=== PATIENT | male | born 1985 | race Caucasian/White ===

== ENCOUNTER 2021-01-01 08:56 | Emergency (ER) | payer OTHER, SELFPAY ==
[2021-01-01 09:05] VITALS: BP 162/103; PULSE 101; RESP 17; TEMP 36.8; O2SAT 98
--- NOTE | 2021-01-01 09:07 | ED.UPPEXIN ---
HPI - Extremity Injury (Upper) General Chief Complaint: Extremity Injury, Upper Stated Complaint: SHOULDER PAIN Time Seen by Provider: 01/01/21 09:12 Source: patient Mode of arrival: ambulatory Limitations: no limitations History of Present Illness HPI narrative: 35-year-old man comes in today complaining of rectal pain and left shoulder pain. He states he intermittently has blood when he wipes but for last few days he has had pain. He states that he has had a workup in the past including a colonoscopy at 22 yo where he was diagnosed with polyps. He states he often has abdominal pain. There have been concerns in the past about Crohn's disease. He has 2-3 bms daily. He denies fever, nausea, vomiting, dysuria, hematuria, frequent urination, constipation. He also has had left shoulder pain for two months. he states he injured it lifting some carpet over his left shoulder and he felt it pop. He states he has had several episodes in the past where he had months of pain after a minor injury. He states he is now having some numbness on the medial aspect of his left upper arm. She has had no prior dislocation or surgery on that shoulder. MD complaint: injury to: left and shoulder Onset (ago): month(s) (2) Other Extremity Injury: Left: shoulder Other injuries: none Place: work Relieving factors: rest Exacerbating factors: movement of extremity and other (lifting with left arm) Context: injury Associated symptoms: numbness and heard/felt popping sensation Related Data Allergies Allergy/AdvReac Type Severity Reaction Status Date / Time No Known Allergies Allergy Verified 01/01/21 09:15 Review of Systems Review of Systems: All systems reviewed & are unremarkable except as noted in HPI and below Constitutional: Constitutional: Denies chills and Denies fever(s) Comments: Denies weight loss. Eyes: Eyes: Denies change in vision and Denies photophobia ENT: Denies dysphagia, Denies nasal congestion and Denies sore throat Cardiovascular: Cardiovascular: Denies chest pain and Denies radiating jaw, neck or arm pain Respiratory: Respiratory: Denies cough, Denies dyspnea and Denies wheezing Gastrointestinal: Gastrointestinal: Reports as per HPI, Denies abdominal pain, Denies constipation, Denies diarrhea, Denies nausea and Denies vomiting Genitourinary: Genitourinary: Denies hematuria, Denies dysuria and Denies urinary frequency Musculoskeletal: Musculoskeletal: Denies back pain, Reports arthralgias and Denies joint swelling Integumentary/Breasts: Skin/Breast: Denies pruritus, Denies erythema and Denies rash Neurologic: Denies vertigo, Denies dizziness and Denies syncope Psychiatric: Psychiatric: Denies anxiety Endocrine: Endocrine: Denies polydipsia and Denies polyuria Hematologic/Lymphatic: Hematologic/Lymphatic: Denies easy bleeding and Denies easy bruising Allergic/Immunologic: Allergic/Immunologic: Denies lip swelling and Denies throat swelling [facility], [facility] Past Medical History Medical History (Updated 01/01/21 @ 09:41 by Justin Deng MD) Colon polyps Surgical History Surgical History (Updated 01/01/21 @ 09:34 by Justin Deng MD) H/O colonoscopy H/O esophagogastroduodenoscopy Social History Social History (Updated 01/01/21 @ 09:34 by Justin Deng MD) Smoking status: Current every day smoker Substance use: never Living arrangements: with family Exam Const: General: healthy appearing and alert Nutritional Appearance: obese Orientation/consciousness: patient oriented x3 Limitations: no limitations Other: Mild acute distress. HENMT: Head: normal to inspection Ears: external ears normal, EAC's normal and Abnormal EAC present Face and sinus: normal facial exam Mouth: Yes moist mucous membranes Throat: posterior oropharynx normal Eyes: Conjunctivae: conjunctivae normal Pupils: Equal, round and reactive pupils present EOM: EOMs intact bilaterally Resp: Effort & Inspection: normal
[2021-01-01 09:50] VITALS: RESP 15
== END 2021-01-01 09:50 | disposition home or self-care (01) ==
PROVIDERS: Emergency Provider Emergency Medicine
DX: S46.912A Strain of unspecified muscle, fascia and tendon at shoulder and upper arm level, left arm, initial encounter (principal); K64.9 Unspecified hemorrhoids; X50.9XXA Other and unspecified overexertion or strenuous movements or postures, initial encounter
CPT/HCPCS: 99283

== ENCOUNTER 2021-01-04 08:20 | Emergency (ER) | payer OTHER, SELFPAY ==
--- NOTE | ~2021-01-04 | XR_ITS ---
EXAMINATION: XR chest 2V DATE: 01/04/2021 09:49 INDICATION: Cough and wheezing. TECHNIQUE: Frontal and lateral views of the chest were obtained on 3 radiographs. COMPARISON: None. FINDINGS: The chest demonstrates clear lungs without pneumonia, pleural effusion, or pneumothorax. Th e heart size is normal. IMPRESSION: 1. No acute cardiopulmonary disease. Reviewed, dictated and finalized at location B.
[2021-01-04 08:37] VITALS: BP 146/109; PULSE 95; RESP 95; TEMP 36.4; O2SAT 97
--- NOTE | 2021-01-04 08:38 | ED.URI ---
HPI - URI/Sore Throat General Chief Complaint: Upper Respiratory Infection Stated Complaint: possible sinus infection Time Seen by Provider: 01/04/21 08:38 Source: patient Mode of arrival: ambulatory Limitations: no limitations History of Present Illness HPI Narrative: 35-year-old man with history of asthma and smoking comes in today complaining of cough, nasal congestion, chills and productive cough for the last 48 hours. Patient states that he has had some mild shortness of breath and wheezing. States he has had wheezing in the past. He denies any chest pain, vomiting, diarrhea, rash or known sick exposures. Patient has a history of hypertension and takes antihypertensive medication at home however he states he is not very consistent and is running out of his medication since being [facility]. MD elicited complaint: cough, sore throat, rhinorrhea and nasal congestion Pertinent past history: asthma Onset (ago): day(s) (2) Consistency: constant Severity: moderate Description of mucous: other (brown and yellow) Able to tolerate fluids by mouth: Yes Exacerbating factors: deep breaths Relieving factors: nothing Associated symptoms: chills, rhinorrhea, nasal congestion, sore throat, cough and shortness of breath Treatments prior to arrival: none Related Data Home Medications Medication Instructions Recorded Confirmed levothyroxine 25 mcg PO DAILY 01/04/21 01/04/21 nifedipine 30 mg PO DAILY 01/04/21 01/04/21 Allergies Allergy/AdvReac Type Severity Reaction Status Date / Time No Known Allergies Allergy Verified 01/01/21 09:15 Review of Systems Review of Systems: All systems reviewed & are unremarkable except as noted in HPI and below Constitutional: Constitutional: Reports chills and Denies fever(s) Eyes: Eyes: Denies change in vision and Denies photophobia ENT: Denies dysphagia, Reports nasal congestion and Reports sore throat Cardiovascular: Cardiovascular: Denies chest pain and Denies radiating jaw, neck or arm pain Respiratory: Respiratory: Reports as per HPI, Reports cough, Reports dyspnea and Reports wheezing Gastrointestinal: Gastrointestinal: Denies abdominal pain, Denies diarrhea, Denies nausea and Denies vomiting Genitourinary: Genitourinary: Denies dysuria and Denies urinary frequency Musculoskeletal: Musculoskeletal: Denies arthralgias and Denies joint swelling Integumentary/Breasts: Skin/Breast: Denies pruritus, Denies erythema and Denies rash Neurologic: Denies vertigo, Denies dizziness and Denies syncope Hematologic/Lymphatic: Hematologic/Lymphatic: Denies easy bleeding and Denies easy bruising Allergic/Immunologic: Allergic/Immunologic: Denies lip swelling and Denies throat swelling [facility] Past Medical History Medical History (Updated 01/04/21 @ 09:11 by Justin Deng MD) Asthma Bipolar 1 disorder Colon polyps Hypertension Hypothyroidism Surgical History Surgical History H/O colonoscopy H/O esophagogastroduodenoscopy Social History Social History Smoking status: Current every day smoker Substance use: never Exam Const: General: healthy appearing, no acute distress and alert Nutritional Appearance: obese Orientation/consciousness: patient oriented x3 Limitations: no limitations HENMT: Head: normal to inspection Ears: external ears normal, TM's normal bilaterally and EAC's normal General nose exam: Normal nares present Face and sinus: normal facial exam Mouth: Yes moist mucous membranes Other: Diffuse pharyngeal erythema with postnasal drainage. No edema, masses, swelling or tonsillar hypertrophy. Eyes: Conjunctivae: conjunctivae normal Pupils: Equal, round and reactive pupils present EOM: EOMs intact bilaterally Resp: Effort & Inspection: normal respiratory effort Auscultation: wheezes expiratory wheezes and throughout Other: Good
[2021-01-04] MEDS: ALBUTEROL SULFATE (*SP) INHALER 4 PUFF INHALATION (09:00)
[2021-01-04 09:33] LABS: Influenza A QL RT-PCR Negative (Negative); Influenza B QL RT-PCR Negative (Negative); SARS-CoV-2 RNA PCR Negative (Negative)
[2021-01-04 10:10] VITALS: BP 167/97; PULSE 80; RESP 18; O2SAT 98
== END 2021-01-04 10:10 | disposition home or self-care (01) ==
PROVIDERS: Emergency Provider Emergency Medicine
DX: J45.21 Mild intermittent asthma with (acute) exacerbation (principal); I10 Essential (primary) hypertension; J06.9 Acute upper respiratory infection, unspecified; Z20.822 Contact with and (suspected) exposure to COVID-19; F17.200 Nicotine dependence, unspecified, uncomplicated; E03.9 Hypothyroidism, unspecified
CPT/HCPCS: 71046; 87502; 99283; A9270; C9803; U0003; U0005

== ENCOUNTER 2024-05-11 07:49 | Emergency (ER) | payer OTHER, SELFPAY ==
[2024-05-11] VITALS (7 sets, daily range): BP systolic 165–185; BP diastolic 106–125; PULSE 86–101; RESP 8–20; TEMP 36.6; O2SAT 92–98
[2024-05-11] MEDS: NIFEdipine 30 MG TAB.ER.24 PO (08:22)
--- NOTE | 2024-05-11 08:24 | PC.NURSE ---
Pt c/o back ache and ALVARES, requesting something for pain. made aware. Dr. Goldsmith gave VORB for 650mg tylenol PO stat.
[2024-05-11] MEDS: ACETAMINOPHEN 325 MG TABLET 650 MG PO (09:03)
--- NOTE | 2024-05-11 09:18 | PC.NURSE ---
Pt provided with d/c instructions from [facility] with phone to call for transportation. [phone] called for pharmacy update. Nidia at [facility] reports to call again when pt is ready to be d/c.
--- NOTE | 2024-05-11 09:36 | ED.GENADULT ---
HPI - General Adult General Chief complaint: Recheck/Abnormal Lab/Rx Stated complaint: HTN Time Seen by Provider: 05/11/24 08:00 History of Present Illness HPI narrative: Patient is a 39-year-old male who presents ER with elevated blood pressures. He is at [facility] for mental health treatment. He is not suicidal. He has not been taking his hypertension medications for several months and it was found that his blood pressure was high so he was sent here to be evaluated. He has no additional symptoms or complaints. Related Data Home Medications Medication Instructions Recorded Confirmed levothyroxine 25 mcg tablet 25 mcg PO DAILY 01/04/21 01/04/21 Allergies Allergy/AdvReac Type Severity Reaction Status Date / Time No Known Allergies Allergy Verified 01/16/21 13:26 Review of Systems Review of Systems: All systems reviewed & are unremarkable except as noted in HPI and below Constitutional: Constitutional: Reports no additional constitutional complaints Cardiovascular: Cardiovascular: Reports no additional cardiovascular complaints Respiratory: Respiratory: Reports no additional respiratory complaints Gastrointestinal: Gastrointestinal: Reports no additional gastrointestinal complaints [facility] Past Medical History Medical History Asthma Bipolar 1 disorder Colon polyps Hypertension Hypothyroidism Surgical History Surgical History H/O colonoscopy H/O esophagogastroduodenoscopy Social History Social History Smoking status: Current every day smoker Substance use: never Living arrangements: with family Exam Narrative: GENERAL: Well-appearing, well-nourished, and in no acute distress. HEAD: Normocephalic, atraumatic. ENT: Mucous membranes moist. CHEST: Clear to auscultation. No respiratory distress. HEART: Regular rate and rhythm. Normal peripheral pulses. NEURO: Alert and oriented x3. PSYCH: Normal mood and affect. Course Course Emergency Course: Blood pressure improving with patient's home nifedipine. Will prescribe hypertension medication for home. Will also give PCP follow-up. Vital Signs Vital signs: Vital Signs Temperature 97.9 F 05/11/24 07:52 Pulse Rate 95 05/11/24 07:52 Respiratory Rate 18 05/11/24 07:52 Blood Pressure 185/125 H 05/11/24 07:52 Pulse Oximetry 98 09/18/24 07:52 Oxygen Delivery Room Air 05/11/24 07:52 Temperature 97.9 F 05/11/24 07:52 Pulse Rate 90 05/11/24 09:01 Respiratory Rate 17 05/11/24 09:01 Blood Pressure 173/106 H 05/11/24 09:01 Pulse Oximetry 92 05/11/24 09:01 Oxygen Delivery Room Air 05/11/24 07:52 Medical Decision Making Vital Signs Vital Signs: Vital Signs Temperature 97.9 F 05/11/24 07:52 Pulse Rate 95 05/11/24 07:52 Respiratory Rate 18 05/11/24 07:52 Blood Pressure 185/125 H 05/11/24 07:52 Pulse Oximetry 98 05/11/24 07:52 Oxygen Delivery Room Air 05/11/24 07:52 Temperature 97.9 F 05/11/24 07:52 Pulse Rate 90 05/11/24 09:01 Respiratory Rate 17 05/11/24 09:01 Blood Pressure 173/106 H 05/11/24 09:01 Pulse Oximetry 92 05/11/24 09:01 Oxygen Delivery Room Air 05/11/24 07:52 Discharge Plan Discharge Clinical Impression: Hypertension Patient Disposition: Home, Self-Care Condition: Stable Instructions: Hypertension (ED) Additional Instructions: We are refilling her nifedipine. Make sure you take the medications so your blood pressure remains controlled. Prescriptions: New nifedipine 30 mg tablet extended release 30 mg PO DAILY Qty: 30 0RF No Action Proctofoam HC 1-1 % foam 1 applic RECTAL QID PRN (Reason: hemorrhoids) Qty: 10 0RF Rx Instructions: Use for no longer than one week. nifedipine 30 mg tablet extended release 30 mg PO CHERYL
== END 2024-05-11 09:54 | disposition home or self-care (01) ==
PROVIDERS: Emergency Provider Emergency Medicine
DX: I10 Essential (primary) hypertension (principal); J45.909 Unspecified asthma, uncomplicated; E03.9 Hypothyroidism, unspecified; F17.200 Nicotine dependence, unspecified, uncomplicated; Z86.010 Personal history of colon polyps; T46.5X6A Underdosing of other antihypertensive drugs, initial encounter; Z79.899 Other long term (current) drug therapy
CPT/HCPCS: 99283; A9270

== ENCOUNTER 2024-08-15 08:50 | Emergency (ER) | payer OTHER, SELFPAY ==
[2024-08-15 09:01] VITALS: BP 139/94; PULSE 90; RESP 16; TEMP 36.3; O2SAT 99
--- NOTE | 2024-08-15 09:26 | ED_ITS ---
HPI - URI/Sore Throat General Chief Complaint: Upper Respiratory Infection Stated Complaint: Sinus Time Seen by Provider: 08/15/24 09:26 Source: patient, RN notes reviewed and old records reviewed Mode of arrival: ambulatory Limitations: no limitations History of Present Illness HPI Narrative: [age] old male presents to the [facility] with complaints abdominal pain, nausea, vomiting since Thursday. States that he has not been able to keep any fluids or food down since Thursday. Patient also reporting a frontal headache and bilateral ear discomfort since last night, reports his right ear is the only discomfort he is having right. States that he did take Tylenol for that. No other treatment prior to arrival Denies fevers chest pain. Onset (ago): day(s) (2) Related Data Home Medications ?Medication ?Instructions ?Recorded ?Confirmed ?Last Taken ?Type levothyroxine 25 mcg tablet 25 mcg PO DAILY 01/04/21 01/04/21 Unknown History aripiprazole 10 mg tablet mg 08/15/24 Unknown History aripiprazole 5 mg tablet mg 08/15/24 Unknown History gabapentin 300 mg capsule mg 08/15/24 Unknown History Allergies Allergy/AdvReac Type Severity Reaction Status Date / Time albuterol Allergy Intermediate Swelling Verified 08/15/24 10:05 of Lip/Tongue/Throat Review of Systems Review of Systems: All systems reviewed & are unremarkable except as noted in HPI and below Constitutional: Constitutional: Reports no additional constitutional complaints ENT: Reports otalgia and Reports sinus pain Cardiovascular: Cardiovascular: Reports no additional cardiovascular complaints, Denies chest pain and Denies dyspnea Respiratory: Respiratory: Reports no additional respiratory complaints, Denies chest congestion, Denies cough and Denies dyspnea Gastrointestinal: Gastrointestinal: Reports as per HPI, Reports abdominal pain, Reports nausea and Reports vomiting Musculoskeletal: Musculoskeletal: Reports no additional musculoskeletal complaints Integumentary/Breasts: Skin/Breast: Reports system reviewed and no additional complaints, except as docu PMFSH Past Medical History Medical History Bipolar 1 disorder Hypothyroidism Hypertension Asthma Colon polyps Surgical History Surgical History H/O esophagogastroduodenoscopy H/O colonoscopy Social History Social History Smoking status: Current every day smoker Substance use: never Living arrangements: with family Comments At the time of my signature, I reviewed and agree with the nursing past medical, surgical, social, and family history. There is no relevant family history pertinent to the patient complaint. Exam Const: General: cooperative, no acute distress, well developed, alert, uncomfortable and well nourished Nutritional Appearance: well nourished and obese Orientation/consciousness: patient oriented x3 Limitations: no limitations HENMT: Head: normal to inspection Ears: external ears normal, EAC's normal, mastoids normal, no periauricular adenopathy and TM abnormal bulging bilateral Face/Nose/Sinus: normal facial exam, face symmetric and sinus tenderness Face and sinus: normal facial exam and face symmetric Mouth: Yes Normal oral and palatal mucosa present, Yes lip normal, Yes tongue normal and Yes moist mucous membranes Throat: posterior oropharynx normal, uvula midline and no uvular edema Eyes: General: appearance normal, both eyes and all related structures Neck: Neck: normal visual inspection, full ROM, no lymphadenopathy and no meningeal signs Chest: Chest palpation & inspection: normal inspection of the chest Resp: Effort & Inspection: normal respiratory effort and able to speak in complete sentences Auscultation: no crackles, no rales, no rhonchi and wheezes expiratory wheezes and right upper Cardio: Rate: regular rate GI: GI Palp: Yes abdominal tenderness Auscultation: normal bowel sounds : General: Yes no CVA tenderness Skin: General skin exam: normal color and no rashes or lesions noted Neuro: General: patient oriented x3, gait normal, moves all extremities and no meningeal signs Cognition (Neuro): normal cognition Speech: normal speech Gait exam (Neuro): Normal gait present Extrem: General: normal to inspection, full ROM, capillary refill normal and normal gait Psych: Appearance: grossly normal and well kempt Mental Status: mental status grossly normal Speech and movement: Normal speech and movement present and Clear speech present Affect: normal affect Attitude: cooperative Course Course Level of Care: Express Care Visit Vital Signs Vital signs: Vital Signs Temperature 97.3 F L 08/15/24 09:01 Pulse Rate 90 08/15/24 09:01 Respiratory Rate 16 08/15/24 09:01 Blood Pressure 139/94 H 08/15/24 09:01 Pulse Oximetry 99 08/15/24 09:01 Oxygen Delivery Room Air 08/15/24 09:01 Temperature 97.3 F L 08/15/24 09:01 Pulse Rate 90 08/15/24 09:01 Respiratory Rate 16 08/15/24 09:01 Blood Pressure 139/94 H 08/15/24 09:01 Pulse Oximetry 99 08/15/24 09:01 Oxygen Delivery Room Air 08/15/24 09:01 Reviewed Transfer Transfered to: [facility] (Per patient request) Transportation: Other (POV) Transfer rationale: Patient with 2 day history of right upper quadrant, epigastric pain with nausea vomiting, and able to keep eat or drink for 2 days Sending to the ER rule out gallbladder, pancreatitis Accepting physician: Spoke with Yady SHINE, Dr Smith MDM - URI/Sore Throat MDM Narrative Medical decision making narrative: Patient sitting in exam room. Nontoxic, vitals stable. Patient presents with sinus headache but also nausea vomiting x2 days. On exam patient with epigastric, right upper quadrant pain. Concern for gallbladder issues, pancreatitis due to patient's past medical history. Patient being sent for higher level of care Transfer instructions reviewed with patient to go directly to the emergency room, do not eat or drink. All questions have been answered, and the patient deny any further questions. Some parts of this dictation were generated by voice recognition software and may contain typographical and/or grammatical inaccuracies. Differential Diagnosis Differential diagnosis: Likely upper respiratory infection and other (Cholecystitis, cholelithiasis, pancreatitis) Critical Care Time Critical Care Time Critical Care Time: No Discharge Plan Discharge Clinical Impression: Abdominal pain, acute, right upper quadrant, Nausea & vomiting Patient Disposition: Acute Care Hospital Condition: Stable Patient Language: Andorran Prescriptions: No Action Proctofoam HC 1-1 % foam 1 applic RECTAL QID PRN (Reason: hemorrhoids) Qty: 10 0RF Rx Instructions: Use for no longer than one week. nifedipine 30 mg tablet extended release 30 mg PO DAILY Qty: 30 0RF albuterol sulfate 90 mcg/actuation HFA aerosol inhaler 2 puff inhalation Q4H PRN (Reason: shortness of breath or wheezing) Qty: 6.7 0RF levothyroxine 25 mcg Tablet 25 mcg PO DAILY nifedipine 30 mg tablet extended release 30 mg PO DAILY Qty: 30 0RF Follow-up/Referrals: [facility],Healthcare [Primary Care Provider] -
== END 2024-08-15 09:45 | disposition short-term general hospital (02) ==
PROVIDERS: Emergency Provider Nurse Practitioner
DX: R10.11 Right upper quadrant pain (principal); R11.2 Nausea with vomiting, unspecified; I10 Essential (primary) hypertension; E03.9 Hypothyroidism, unspecified; F17.200 Nicotine dependence, unspecified, uncomplicated; Z79.899 Other long term (current) drug therapy
CPT/HCPCS: 99212; G0463

== ENCOUNTER 2024-08-15 10:20 | Emergency (ER) | payer OTHER, SELFPAY ==
[2024-08-15] VITALS (12 sets, daily range): BP systolic 146–179; BP diastolic 90–119; PULSE 81–97; RESP 8–18; TEMP 36.4; O2SAT 93–97
--- NOTE | ~2024-08-15 | US_ITS ---
EXAMINATION: US abdomen limited DATE: 08/15/2024 11:58 INDICATION: Right upper quadrant abdominal pain. TECHNIQUE: Multiple grayscale and Doppler ultrasound images of the abdomen were obtained. COMPARISON: None FINDINGS: This was personally pancreatic body appears normal. The pancreatic head and tail are obscured. Liver has normal contour, with a smooth surface. There is increased parenchymal echogenicity and coarsened echotexture consistent with diffuse hepatic steatosis. No liver lesion identified. No intrahepatic b iliary duct dilation suspected. Portal venous flow was seen in the hepatopetal, normal direction and has normal Doppler waveform. The gallbladder is normal in appearance. There is no cholelithiasis. Th e common bile duct measures 2-3 mm, which is normal. Sonographic Baron sign was reported as negative by the estate planning paralegal.This visualized portion of the right kidney demonstrate normal contour and echoge nicity with no hydronephrosis. After flow was seen in the proximal aorta and inferior vena cava on co gumaro Doppler images which are not clearly visualized on the grayscale imaging. IMPRESSION: 1. Diffuse hepatic steatosis. Otherwise unremarkable right upper quadrant ultrasound. Reviewed, dictated and finalized at location B. [facility] [facility] IMPRESSION: 1. Diffuse hepatic steatosis. Otherwise unremarkable right upper quadrant ultra sound.
--- NOTE | ~2024-08-15 | XR_ITS ---
EXAMINATION: XR chest 1V portable DATE: 08/15/2024 11:32 INDICATION: Upper respiratory infection. TECHNIQUE: A single frontal view of the chest was obtained on 2 radiographs. COMPARISON: Chest 2 views 01/04/2021 FINDINGS: There is no pneumonia, pleural effusion, or pneumothorax. The heart size is normal. IMPRESSION: 1. No acute cardiopulmonary disease. Reviewed, dictated and finalized at location A. [facility] [employer] [facility]
[2024-08-15 10:48] LABS: Basophils Absolute Auto 0.1 K/mm3 (0.0-0.1); Basophils Percent Auto 0.6 % (0.2-1.2); Eosinophils Absolute Auto 0.2 K/mm3 (0-0.3); Eosinophils Percent Auto 1.4 % (0-4.4); Hematocrit 48.8 % (42.0-52.0); Hemoglobin 16.6 g/dL (14.0-18.0); Immature Granulocyte Absolute 0.05 K/mm3 (0.00-0.031); Immature Granulocyte Percent A 0.5 % (0-0.5); Lymphocytes Absolute Auto 3.03 K/mm3 (0.9-3.2); Mean Corpuscular Hemoglobin 28.3 pg (26-34); Mean Corpuscular Volume 83.3 fl (80-100); Mean Platelet Volume 11.2 fl (7.4-10.4); Monocytes Absolute Auto 0.8 K/mm3 (0.1-0.6); Monocytes Percent Auto 7.2 % (2.6-8.5); Neutrophils Absolute Auto 6.4 K/mm3 (1.3-6.7); Neutrophils Percent Auto 61.3 % (45.5-73.1); Platelet Count Result 265 k/mm3 (150-375); Red Blood Count 5.86 M/mm3 (4.6-6.20); Red Cell Distribution Width 12.9 % (11.5-14.5); White Blood Count 10.5 K/mm3 (4.5-10.0)
[2024-08-15 10:56] LABS: Add Urine Microscopic? YES; Appearance Urine Clear (Clear); Bacteria Urine None Seen /hpf; Bilirubin Urine Negative (Negative); Blood Urine Negative (Negative); Color Urine Yellow (Yellow); Glucose Urine UA Negative (Negative); Ketones Urine Negative (Negative); Leukocyte Esterase Ur Negative LEU/UL (Negative); Nitrate Urine Negative (Negative); Non Pathogenic Casts 0-2; Protein Urine Trace mg/dL (Negative); RBC Urine 0-2 /hpf (0-2); Specific Grav Ur 1.027 (1.001-1.035); Squamous Epithelial Cell Urine None Seen /hpf (Few); Urobilinogen Urine 0.2 mg/dL (<2.0); WBC Urine 0-5 /hpf (0-3); pH Urine 5.5 (5.0-9.0)
[2024-08-15 11:03] LABS: Alanine Aminotransferase 141 U/L (6-50); Albumin Level 4.6 g/dL (3.5-5.1); Alkaline Phosphatase 68 U/L (38-126); Anion Gap 4 mmol/L (4-12); Aspartate Amino Transferase 55 U/L (17-59); Bilirubin,Total 1.1 mg/dL (0.2-1.3); Blood Urea Nitrogen 17 mg/dL (9-20); Calcium 9.4 mg/dL (8.4-10.2); Carbon Dioxide 29 mmol/L (22-30); Chloride 105 mmol/L (98-107); Estimated CRCL calculation 104 ml/min; Estimated Glomerular Filt Rate > 60; Glucose 110 mg/dL (65-110); Lipase 59 U/L (23-300); Potassium 4.4 mmol/L (3.4-5.0); Sodium 138 mmol/L (137-145)
[2024-08-15] MEDS: ONDANSETRON INJ 4 MG/2 ML VIAL IV PUSH (11:42)
[2024-08-15] MEDS: HYDROmorphone HCL INJ (*CRX) 1 MG/ML SYR 0.5 MG IV PUSH (11:42)
--- NOTE | 2024-08-15 11:47 | ED.ABDPAIN ---
HPI - Abdominal Pain General Chief Complaint: Abdominal Pain Stated Complaint: abd pain Time Seen by Provider: 08/15/24 11:15 History of Present Illness HPI narrative: 39-year-old male with a past medical history included bipolar depression, hypertension, asthma. Patient presents to the emergency department via referral from Urgent Care for 2 days of abdominal pain in the right upper quadrant, epigastric pain, nausea and vomiting. Difficulty tolerating p.o. intake. He states he has also been having subjective fever and chills in a bilateral frontal headache. Denies any recent injuries or illnesses. No history of gallstones or cholecystitis was nausea. No abdominal surgery history. Was otherwise in normal state of health. No injuries or trauma. No constipation or diarrhea. Related Data Home Medications ?Medication ?Instructions ?Recorded ?Confirmed ?Last Taken ?Type levothyroxine 25 mcg tablet 25 mcg PO DAILY 01/04/21 01/04/21 Unknown History aripiprazole 10 mg tablet mg 08/15/24 Unknown History aripiprazole 5 mg tablet mg 08/15/24 Unknown History gabapentin 300 mg capsule mg 08/15/24 Unknown History Allergies Allergy/AdvReac Type Severity Reaction Status Date / Time albuterol Allergy Intermediate Swelling Verified 08/15/24 10:05 of Lip/Tongue/Throat Review of Systems Review of Systems: As reviewed [facility] Past Medical History Medical History Bipolar 1 disorder Hypothyroidism Hypertension Asthma Colon polyps Surgical History Surgical History H/O esophagogastroduodenoscopy H/O colonoscopy Social History Social History Smoking status: Current every day smoker Substance use: never Living arrangements: with family Exam Narrative: GENERAL: [Well-appearing, well-nourished, and in no acute distress.] HEAD: [Normocephalic, atraumatic.] EYES: [PERRLA and EOMI.] ENT: Nares clear, no rhinorrhea or epistaxis. Mucous membranes moist. NECK: Supple. CHEST: [Clear to auscultation. No respiratory distress.] HEART: [Regular rate and rhythm]. No murmur heard. [Normal peripheral pulses.] ABDOMEN: Protuberant abdomen, tenderness to palpation the upper right-sided and epigastrium, positive Baron sign, [No rigidity or guarding] EXTREMITIES: Normal range of motion. [No edema.] SKIN: Warm, dry, no rash. NEURO: [No focal deficits]. Alert and oriented [x3.] PSYCH: [Normal mood and affect.] Course Vital Signs Vital signs: Vital Signs Temperature 36.4 C 08/15/24 10:24 Pulse Rate 97 08/15/24 10:24 Respiratory Rate 16 08/15/24 10:24 Blood Pressure 166/107 H 08/15/24 10:24 Pulse Oximetry 97 08/15/24 10:24 Oxygen Delivery Room Air 08/15/24 10:24 Temperature 36.4 C 08/15/24 10:24 Pulse Rate 88 08/15/24 13:53 Respiratory Rate 18 08/15/24 13:53 Blood Pressure 146/90 H 08/15/24 13:53 Pulse Oximetry 96 08/15/24 13:53 Oxygen Delivery Room Air 08/15/24 11:16 MDM - Abdominal Pain MDM Narrative Medical decision making narrative: 39-year-old male with a past medical history of bipolar depression, hypertension asthma presenting with 2 days of right upper quadrant pain, epigastric pain, nausea vomiting. He otherwise appears well not any acute distress and is not ill or toxic appearing but does have tenderness in his right upper quadrant epigastrium. His abdomen is protuberant but not distended. He is nauseous and had some vomiting earlier today. No fever chills. Vital signs show some stable high blood pressure with a blood pressure 161/119 but otherwise no tachycardia, fever, hypoxia. Differential includes cholelithiasis, cholecystitis, biliary colic, renal colic, gastritis, pancreatitis. He was sent in by urgent care for referral to rule out gallbladder or pancreatitis concerns. IV was established and blood work obtained. Right upper quadrant ultrasound ordered he was given Dilaudid and Zofran for symptom control. Workup shows no significant leukocytosis, no anemia. Electrolytes within normal limits, negative lipase, normal creatinine, normal bilirubin, mildly elevated ALT but otherwise AST and alk-phos normal. No evidence of urinary tract infection. Right upper quadrant ultrasound shows hepatic steatosis otherwise unremarkable with normal gallbladder, no cholelithiasis, common bile duct within normal limits. Negative sonographic Baron sign. Chest x-ray was independently reviewed and shows no pneumonia pleural effusion or pneumothorax. Patient was re-evaluated after symptom control felt significant improvement. At this time I believe he can be safely discharged home at this time given that he is asymptomatic with normal labs and normal vital signs. Patient felt comfortable this plan of care and will follow up on outpatient basis or return with any new or worsening signs or symptoms. Medical Records Attestation: I reviewed the patient's medical records. Lab Data Attestation: I reviewed the patient's lab results. 08/15/24 10:36 08/15/24 10:36 Labs: Lab Results 08/15/24 Range/Units 10:36 WBC 10.5 H (4.5-10.0) K/mm3 RBC 5.86 (4.6-6.20) M/mm3 Hgb 16.6 (14.0-18.0) g/dL Hct 48.8 (42.0-52.0) % MCV 83.3 (80-100) fl MCH 28.3 (26-34) pg MCHC 34.0 (32-36) g/dl RDW 12.9 (11.5-14.5) % Plt Count 265 (150-375) k/mm3 MPV 11.2 H (7.4-10.4) fl Immature Gran % (Auto) 0.5 (0-0.5) % Neut % (Auto) 61.3 (45.5-73.1) % Lymph % (Auto) 29.0 (18.3-44.2) % Clarke % (Auto) 7.2 (2.6-8.5) % Eos % (Auto) 1.4 (0-4.4) % Baso % (Auto) 0.6 (0.2-1.2) % Lymph # (Auto) 3.03 (0.9-3.2) K/mm3 Clarke # (Auto) 0.8 H (0.1-0.6) K/mm3 Eos # (Auto) 0.2 (0-0.3) K/mm3 Baso # (Auto) 0.1 (0.0-0.1) K/mm3 Abs Immat Gran (auto) 0.05 H (0.00-0.031) K/mm3 Absolute Neuts (auto) 6.4 (1.3-6.7) K/mm3 Absolute Nucleated RBC 0.000 (0.0-0.012) K/mm3 Nucleated RBC % 0.0 (0.0-0.2) % Sodium 138 (137-145) mmol/L Potassium 4.4 (3.4-5.0) mmol/L Chloride 105 (98-107) mmol/L Carbon Dioxide 29 (22-30) mmol/L Anion Gap 4 (4-12) mmol/L BUN 17 (9-20) mg/dL Creatinine 1.10 (0.7-1.3) mg/dL Estim Creat Clear Calc 104 ml/min Estimated GFR > 60 (59 - ) Glucose 110 (65-110) mg/dL Calcium 9.4 (8.4-10.2) mg/dL Total Bilirubin 1.1 (0.2-1.3) mg/dL AST 55 (17-59) U/L ALT 141 H (6-50) U/L Alkaline Phosphatase 68 (38-126) U/L Total Protein 8.0 (6.3-8.2) g/dL Albumin 4.6 (3.5-5.1) g/dL Lipase 59 (23-300) U/L Urine Color Yellow (Yellow) Urine Appearance Clear (Clear) Urine pH 5.5 (5.0-9.0) Ur Specific [place] 1.027 (1.001-1.035) Urine Protein Trace (Negative) mg/dL Urine Glucose (UA) Negative (Negative) mg/dL Urine Ketones Negative (Negative) mg/dL Ur Blood (Man) Negative (Negative) Urine Nitrate Negative (Negative) Urine Bilirubin Negative (Negative) Urine Urobilinogen 0.2 (<2.0) mg/dL Leukocyte Esterase Rfl Negative (Negative) DONNA/UL Urine RBC 0-2 (0-2) /hpf Urine WBC 0-5 (0-3) /hpf Ur Squamous Epith Cells None seen (Few) /hpf Urine Bacteria None seen /hpf Urine Casts 0-2 Imaging Data Attestation: I personally reviewed and interpreted this imaging study as follows: Radiologist's impression: ITS Impressions Chest X-Ray 08/15/24 11:32 IMPRESSION: 1. No acute cardiopulmonary disease. Abdomen Ultrasound 08/15/24 12:15 IMPRESSION: 1. Diffuse hepatic steatosis. Otherwise unremarkable right upper quadrant ultrasound. Discharge Plan Discharge Clinical Impression: Abdominal pain, acute, right upper quadrant, Nausea & vomiting, Fatty liver, Gastroenteritis Patient Disposition: Home, Self-Care Condition: Stable Instructions: Antibiotic Form, Gastroenteritis (DC), Acute Nausea and Vomiting (DC), Abdominal Pain (ED) Additional Instructions: Your workup today was very reassuring. You do have some fatty liver disease which is likely from her drinking history. Follow-up with regular primary care provider. We will send you home with some medications for symptom control fear likely gastroenteritis and stomach bug. Return with any new or worsening concerns at any time. Patient Language: Tunisian Prescriptions: New dicyclomine 20 mg tablet 20 mg PO TID PRN (Reason: abdominal pain) Qty: 20 0RF ondansetron 4 mg tablet,disintegrating 4 mg PO Q8H PRN (Reason: nausea and vomiting) Qty: 10 0RF famotidine [Pepcid] 20 mg tablet 20 mg PO BID Qty: 20 0RF No Action Proctofoam HC 1-1 % foam 1 applic RECTAL QID PRN (Reason: hemorrhoids) Qty: 10 0RF Rx Instructions: Use for no longer than one week. nifedipine 30 mg tablet extended release 30 mg PO DAILY Qty: 30 0RF levothyroxine 25 mcg Tablet 25 mcg PO DAILY gabapentin 300 mg capsule aripiprazole 10 mg tablet aripiprazole 5 mg tablet nifedipine 30 mg tablet extended release 30 mg PO DAILY Qty: 30 0RF Follow-up/Referrals: [facility] [Primary Care Provider] - Stand Alone Forms: Work/School Release IP Time of Disposition: 14:08
== END 2024-08-15 14:26 | disposition home or self-care (01) ==
PROVIDERS: Emergency Provider Student in an Organized Health Care Education/Training Program
DX: K52.9 Noninfective gastroenteritis and colitis, unspecified (principal); R10.11 Right upper quadrant pain; R11.2 Nausea with vomiting, unspecified; K76.0 Fatty (change of) liver, not elsewhere classified; I10 Essential (primary) hypertension; E03.9 Hypothyroidism, unspecified; F31.9 Bipolar disorder, unspecified; F17.200 Nicotine dependence, unspecified, uncomplicated
CPT/HCPCS: 36415; 71045; 76705; 80053; 81001; 83690; 85025; 96374; 96375; 99284; J1171; J2405